=== PATIENT | male | born 1965 | race Caucasian/White ===

== ENCOUNTER 2017-07-08 22:28 | Emergency (ER) | payer BC, OTHER ==
[2017-07-08 22:48] VITALS: BP 158/97; PULSE 85; TEMP 98.3; BMI 29.7
--- NOTE | 2017-07-08 23:26 | PDOC ---
History of Present Illness - General History Source: Patient Exam Limitations: No Limitations - History of Present Illness Initial Comments: 07/08/17 23:38 The patient is a 52 year old male with a significant PMH of prostate CA, kidney stones, [place] palsy, and HTN who presents to the emergency department with hematuria and left sided lower back pain beginning approximately 1 day ago. The patient reports this episode of hematuria and back pain feels different from his prior kidney stone. The patient denies history of diabetes. The patient denies fevers or chills. The patient denies chest pain, shortness of breath, headache and dizziness. Denies nausea, vomit, diarrhea and constipation. Denies dysuria, frequency, urgency and hematuria. Allergies: NKA Past surgical history: None reported. Social history: No reported cigarette, alcohol, or drug use. PCP: From [facility]. <Johnson Broussard - Last Filed: 07/08/17 23:38> - General History Source: Patient <Ankit Madsen - Last Filed: 07/09/17 19:26> - General Chief Complaint: Hematuria Stated Complaint: BLOOD IN URINE Time Seen by Provider: 07/08/17 22:54 Past History <Johnson Broussard - Last Filed: 07/08/17 23:38> - Past Medical History COPD: No HTN: Yes - Suicide/Smoking/Psychosocial Hx Smoking Status: No Smoking History: Never smoked Have you smoked in the past 12 months: No Number of Cigarettes Smoked Daily: 0 Information on smoking cessation initiated: No Hx Alcohol Use: No Drug/Substance Use Hx: No Substance Use Type: None <Ankit Madsen - Last Filed: 07/09/17 19:26> - Past Medical History Allergies/Adverse Reactions: Allergies Allergy/AdvReac Type Severity Reaction Status Date / Time No Known Allergies Allergy Verified 07/08/17 22:48 Home Medications: Ambulatory Orders Aspirin [ASA -] 81 mg PO DAILY 04/14/16 Multivitamin [Poly-Vitamin] 1 each PO DAILY 04/14/16 Ibuprofen 800 mg PO TID #30 tablet 07/09/17 Oxycodone HCl/Acetaminophen [Percocet 5-325 mg Tablet] 1 - 2 tab PO Q6H #20 tablet MDD 4 07/09/17 Tamsulosin HCl [Flomax] 0.4 mg PO DAILY #7 capsule 07/09/17 levoFLOXacin [Levaquin -] 500 mg PO DAILY #7 tablet 07/09/17 Review of Systems - Review of Systems Able to Perform ROS?: Yes Comments:: 07/08/17 23:39 CONSTITUTIONAL: Absent: fever, chills, diaphoresis, generalized weakness, malaise, loss of appetite HEENT: Absent: rhinorrhea, nasal congestion, throat pain, throat swelling, difficulty swallowing, mouth swelling, ear pain, eye pain, visual Changes CARDIOVASCULAR: Absent: chest pain, syncope, palpitations, irregular heart rate, lightheadedness , peripheral edema RESPIRATORY: Absent: cough, shortness of breath, dyspnea with exertion, orthopnea, wheezing, stridor, hemoptysis GASTROINTESTINAL: Absent: abdominal pain, abdominal distension, nausea, vomiting, diarrhea, constipation, melena, hematochezia GENITOURINARY: (+) Hematuria. Absent: dysuria, frequency, urgency, hesitancy, flank pain, genital pain MUSCULOSKELETAL: (+) Left sided lower back pain. Absent: arthralgia, joint swelling SKIN: Absent: rash, itching, pallor HEMATOLOGIC/IMMUNOLOGIC: Absent: easy bleeding, easy bruising, lymphadenopathy, frequent infections ENDOCRINE: Absent: unexplained weight gain, unexplained weight loss, heat intolerance, cold intolerance NEUROLOGIC: Absent: headache, focal weakness or paresthesias, dizziness, unsteady gait, seizure, mental status changes, bladder or bowel incontinence PSYCHIATRIC: Absent: anxiety, depression, suicidal or homicidal ideation, hallucinations. <Johnson Broussard - Last Filed: 07/08/17 23:38> *Physical Exam - Vital Signs Last Vital Signs Temp Pulse Resp BP Pulse Ox 98.3 F 85 18 158/97 100 07/08/17 22:43 07/08/17 22:43 07/08/17 22:43 07/08/17 22:43 07/08/17 22:43 - Physical Exam Comments: 07/08/17 23:39 GENERAL: Well developed, well nourished. Awake and alert. No acute distress. HEENT: Normocephalic, atraumatic. PERRLA, EOMI. No conjunctival pallor. Sclera are non- icteric. Moist mucous membranes. Oropharynx is clear. NECK: Supple. Full ROM. No JVD. Carotid pulses 2+ and symmetric, without bruits. No thyromegaly. No lymphadenopathy. CARDIOVASCULAR: Regular rate and rhythm. No murmurs, rubs, or gallops. Distal pulses are 2+ and symmetric. PULMONARY: No evidence of respiratory distress. Lungs clear to auscultation bilaterally. No wheezing, rales or rhonchi. ABDOMINAL: Soft. Non-tender. Non-distended. No rebound or guarding. No organomegaly. Normoactive bowel sounds. MUSCULOSKELETAL: (+) Positive CVA tenderness. Normal range of motion at all joints. No bony deformities or tenderness. EXTREMITIES: No cyanosis. No clubbing. No edema. No calf tenderness. SKIN: Warm and dry. Normal capillary refill. No rashes. No jaundice. NEUROLOGICAL: Alert, awake, appropriate. Cranial nerves 2-12 intact. No deficits to light touch and temperature in face, upper extremities and lower extremities. No motor deficits in the in face, upper extremities and lower extremities. Normoreflexic in the upper and lower extremities. Normal speech. Toes are downgoing bilaterally. Gait is normal without ataxia. PSYCHIATRIC: Cooperative. Good eye contact. Appropriate mood and affect. <Johnson Broussard - Last Filed: 07/08/17 23:38> - Vital Signs Last Vital Signs Temp Pulse Resp BP Pulse Ox 98.3 F 85 18 158/97 100 07/08/17 22:43 07/08/17 22:43 07/08/17 22:43 07/08/17 22:43 07/08/17 22:43 <Ankit Madsen - Last Filed: 07/09/17 19:26> ED Treatment Course - ADDITIONAL ORDERS Additional order review: Laboratory Results 07/08/17 23:27 Urine Color Yellow Urine Appearance Slcloudy Urine pH 5.0 Ur Specific [place] 1.015 Urine Protein Negative Urine Glucose (UA) Negative Urine Ketones Negative Urine Blood 3+ H Urine Nitrite Negative Urine Bilirubin Negative Urine Urobilinogen Negative Ur Leukocyte Esterase Negative <Johnson Broussard - Last Filed: 07/08/17 23:38> Medical Decision Making - Medical Decision Making 07/09/17 19:26 Dr. Madsen: The scribe's documentation has been prepared under my direction and personally reviewed by me in its entirery. I confirm that the note above accurately reflects all work, treatment, procedures, and medical decision making performed by me. <Ankit Madsen - Last Filed: 07/09/17 19:26> *DC/Admit/Observation/Transfer - Attestations Scribe Attestion: 07/08/17 23:39 Documentation prepared by Johnson Broussard, acting as medical office technologist for Ankit Madsen DO. <Johnson Broussard - Last Filed: 07/08/17 23:38> - Discharge Dispostion Admit: No <Ankit Madsen - Last Filed: 07/09/17 19:26> Diagnosis at time of Disposition: Kidney stone on left side - Discharge Dispostion Disposition: HOME Condition at time of disposition: Stable - Prescriptions Prescriptions: Ibuprofen 800 mg PO TID #30 tablet levoFLOXacin [Levaquin -] 500 mg PO DAILY #7 tablet Oxycodone HCl/Acetaminophen [Percocet 5-325 mg Tablet] 1 - 2 tab PO Q6H #20 tablet MDD 4 Tamsulosin HCl [Flomax] 0.4 mg PO DAILY #7 capsule - Referrals Referrals: ON STAFF,NOT [Primary Care Provider] - Ambrocio Small MD., MD [Staff Physician] - - Patient Instructions Printed Discharge Instructions: DI for Kidney Stones Additional Instructions: TAke medications as directed. Make appt with the urologist referred to you in the next two days
[2017-07-08 23:36] LABS: URINE APPEARANCE SLCLOUDY; URINE BILIRUBIN NEGATIVE (NEGATIVE); URINE BLOOD 3+ (NEGATIVE); URINE COLOR YELLOW; URINE GLUCOSE (UA) NEGATIVE (NEGATIVE); URINE KETONE NEGATIVE (NEGATIVE); URINE LEUK ESTERASE NEGATIVE (NEGATIVE); URINE NITRITE NEGATIVE (NEGATIVE); URINE PROTEIN NEGATIVE (NEGATIVE); URINE UROBILINOGEN NEGATIVE mg/dL (0.2-1.0)
[2017-07-08 23:40] LABS: URINE MUCUS RARE
== END 2017-07-09 02:02 | disposition home or self-care (01) ==
LOC: JER 22:28
DX: N13.2 Hydronephrosis with renal and ureteral calculous obstruction (principal); Z87.442 Personal history of urinary calculi; I10 Essential (primary) hypertension; Z85.46 Personal history of malignant neoplasm of prostate; Z86.69 Personal history of other diseases of the nervous system and sense organs
CPT/HCPCS: 74176; 81003; 81015; 87086; 99282-25